=== PATIENT | male | born 1995 | race Caucasian/White ===

== ENCOUNTER 2017-07-28 17:09 | Emergency (ER) | payer SELFPAY ==
[2017-07-28 17:15] VITALS: BP 155/86; PULSE 78; TEMP 98; BMI 36.1
--- NOTE | 2017-07-28 17:16 | PDOC ---
Rapid Medical Evaluation Chief Complaint: Abscess Boil Time Seen by Provider: 07/28/17 17:13 Medical Evaluation: 07/28/17 17:15 Pt arrives with complaints of: rt axilla abscess x 2 weeks On exam : vss, fluctulant abscess to rt axilla I have ordered: none Pt will go to : fast track
--- NOTE | 2017-07-28 17:31 | PDOC ---
History of Present Illness - General Chief Complaint: Abscess Boil Stated Complaint: ABSCESS BOIL Time Seen by Provider: 07/28/17 17:13 - History of Present Illness Initial Comments: 07/28/17 17:31 CHIEF COMPLAINT: abscess to R axilla HISTORY OF PRESENT ILLNESS: 22 yo M with hx of asthma presents to fast track with abscess to R axilla x 2 weeks. Mother reports that the father has these abscesses as well. Patient and mother deny and fever, chills, nausea, diarrhea. FAMILY HISTORY: Denies SOCIAL HISTORY: Denies tobacco, alcohol, illicit drug use. SURGICAL HISTORY: Denies ALLERGIES: No known drug allergies REVIEW OF SYSTEMS General/Constitutional: Denies fever or chills. Denies weakness, weight change. HEENT: Denies change in vision. Denies ear pain or discharge. Denies sore throat. Cardiovascular: Denies chest pain or shortness of breath. Respiratory: Denies cough, wheezing, or hemoptysis. Gastrointestinal: Denies nausea, vomiting, diarrhea or constipation. Denies rectal bleeding. Genitourinary: Denies dysuria, frequency, or change in urination. Musculoskeletal: Denies joint or muscle swelling or pain. Denies neck or back pain. Skin: "I have an abscess on my armpit." PHYSICAL EXAM General Appearance: Well-appearing, appropriately dressed. No apparent distress. HEENT: EOMI, PERRLA Respiratory/Chest: Lungs CTAB. Cardiovascular: RRR. S1, S2. Musculoskeletal/Extremities: Normal inspection. FROM of all extremities, normal capillary refill. No tenderness to extremities, pedal edema, swelling, erythema or deformity. Integumentary: 2 x 2 fluctuant abscess to R axilla. Appropriate color, dry, warm. 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 Fully oriented, alert. Appropriate mood/affect. Motor strength 5/5. No appreciable EOM palsy, facial droop or sensory deficit. 07/28/17 18:24 Past History - Past Medical History Allergies/Adverse Reactions: Allergies Allergy/AdvReac Type Severity Reaction Status Date / Time No Known Allergies Allergy Verified 07/28/17 17:15 Home Medications: Ambulatory Orders Sulfamethoxazole/Trimethoprim [Bactrim Ds -] 1 tab PO BID #14 tablet 07/28/17 Asthma: Yes COPD: No - Suicide/Smoking/Psychosocial Hx Smoking History: Never smoked *Physical Exam - Vital Signs Last Vital Signs Temp Pulse Resp BP Pulse Ox 98 F 78 20 155/86 99 07/28/17 17:10 07/28/17 17:10 07/28/17 17:10 07/28/17 17:10 07/28/17 17:10 Procedures - Consent Consent obtained: Verbal - Incision and Drainage I&D Site: Right: Axilla Betadine cleansed: Yes Anesthesia: 1% Lidocaine w/ Epi Volume(ml): 3 Blade Size: 11 Attempts: 1 Iodinated Packin/4 in Complications: none Dressing: Yes (telfa) Medical Decision Making - Medical Decision Making 07/28/17 18:26 22 yo M with hx of asthma presents to fast track with abscess to R axilla x 2 weeks. I&D procedure (see procedure note), no complications, patient tolerated well. wound cultures sent bactrim given, will send rx to pharm Advised patient to take medication as prescribed and return in 48 hours for wound check and/or packing removal. Advised patient of signs and symptoms for return to ED. Patient verbalized understanding and agrees to plan. *DC/Admit/Observation/Transfer Diagnosis at time of Disposition: Abscess of axilla, right - Discharge Dispostion Disposition: HOME Condition at time of disposition: Stable Admit: No - Prescriptions Prescriptions: Sulfamethoxazole/Trimethoprim [Bactrim Ds -] 1 tab PO BID #14 tablet - Referrals - Patient Instructions Printed Discharge Instructions: DI for Incision and Drainage of a Skin Abscess Additional Instructions: Take medications as prescribed and complete the entire course of medication. As discussed, keep area of wound clean and dry for the next 24 hours. Afterwards you may wash with soap and water. You MUST return in 48 hours for a wound check and/or packing removal. If the packing falls out, please still return in 48 hours for the wound check. If you develop any fever, chills, nausea, vomiting, diarrhea, or the wound gets bigger despite taking the medication, please return to the ER. - Post Discharge Activity
[2017-07-28] MEDS ORDERED: LIDOCAINE 1%/EPI 1:100000 (20 ML MULTI DOSE VIAL) ONE (18:00)
[2017-07-28] MEDS ORDERED: SULFAMETHOXAZOLE/TRIMETHOPRIM 800MG/160MG D.S. TABLET ONE (18:22)
[2017-07-28] MEDS ORDERED: SULFAMETHOXAZOLE/TRIMETHOPRIM 800MG/160MG D.S. TABLET PO ONE (18:24)
--- NOTE | 2017-08-01 09:37 | PDOC ---
Patient Follow-up (Call Back) - Post ED Follow - Up Condition at time of discharge: Stable Disposition at time of original discharge: HOME Reason for Call Back: Abnwl. Microbiology (Patient with positive wound culture, awaiting sensitivity. On Bactirm appropriate for presumptive MSSA.)
== END 2017-07-28 18:33 | disposition home or self-care (01) ==
LOC: JERFT 17:09
PROC: 0X940ZZ Drainage of Right Axilla, Open Approach (ICD-10-PCS; principal; 2017-07-28)
DX: L02.411 Cutaneous abscess of right axilla (principal)
CPT/HCPCS: 87070; 87186; 87205; 99281-25